=== PATIENT | female | born 1985 | race Two or more races ===

== ENCOUNTER 2023-06-08 21:45 | Outpatient (REF) | payer OTHER, SELFPAY ==
[2023-06-12 11:11] LABS: Age Gdln ACOG Testing Note (.); HPV Aptima Negative (Negative); IGP, Aptima HPV, rfx 16/18,45 Note (.)
== END 2023-06-08 21:46 | disposition home or self-care (01) ==
LOC: LAB 21:45
PROVIDERS: Visit Provider Obstetrics & Gynecology
DX: Z01.419 Encounter for gynecological examination (general) (routine) without abnormal findings (principal)
CPT/HCPCS: 87624; G0145

== ENCOUNTER 2024-06-14 19:50 | Outpatient (REF) | payer OTHER, SELFPAY ==
[2024-06-19 16:08] LABS: Age Gdln ACOG Testing Note (.); HPV Aptima Negative (Negative); IGP, Aptima HPV, rfx 16/18,45 Note (.)
== END 2024-06-14 19:51 | disposition home or self-care (01) ==
LOC: LAB 19:50
PROVIDERS: Visit Provider Obstetrics & Gynecology
DX: Z01.419 Encounter for gynecological examination (general) (routine) without abnormal findings (principal)
CPT/HCPCS: 88175

== ENCOUNTER 2025-01-31 16:39 | Outpatient (OUT) | payer OTHER, SELFPAY ==
--- OUTSIDE RECORDS SUMMARY | 2024-11-27 15:23 | XMS_ITS ---
Author Name Auto Generated Organization [facility] Care Team Providers Care Director Enterprise Systems Name Role Phone BESSIE LARSEN Attending Unavailable [place] CHAMBERS Attending Unavailable SU, MIHIR Kruse Attending Unavailabl e SU, MIHIR Kruse Attending Unavailabl e SU, MIHIR Kruse Attending Unavailabl e PROBLEMS No Problem Records Found PROCEDURES No Procedure Records Found RESULTS FAMILY MEDICINE OFFICE/CLINI C NOTE Observed: 06/15/2024 1:49 PM Status: F Source: [facility] Family Medicine Office/Clini c Note HPI Staff Thai is a 39 year old female presenting with Establish Care: History: Any previous diagnosis: no History of seeing any specialist: no When was your last doctors visit: awhile ago she can't remember Last provider: Khushbu Any recent labs:PAP completed yesterday with Dr. Larsen Acute: Current issues/complaints: weight loss History of Present Illness 38 year old patient presents today to establish care with this provider and to discuss her weight. She reports she has gained 30 pounds since March 2024. She states she has not changed her eating habits but she did stop going to the gym around that time. Review of Systems PHQ Score Initial Depression Screen Score: 0 SCORE Constitutional: no fever, no chills, no sweats, no weakness Skin: no Jaundice, no rash, no lesions, nopetechiae ENMT: no ear pain, no sore throat, no congestion, no hoarseness Respiratory: no shortness of breath, no cough, no orthopnea, no wheezing Cardiovascular: no chest pain, no palpitations, no edema Gastrointestinal: no nausea, no vomiting, no diarrhea, no GI bleeding Genitourinary: no dysuria, no hematuria, no discharge, no pain Musculoskeletal: no back pain, no trauma Neurologic: no headache, no dizziness, no numbness, no weakness Psychiatric: no sleeping problems, no irritability, no mood swings/depression. Heme/Lymph: no bleeding tendency, no bruising tendency, no petechiae, no swollen nodes Allergy/Immunologic: no seasonal allergies, no food allergies, no recurrent infections, no impaired immunity Additional ROS info: Except as noted in the above Review of Systems and in the History of Present Illness all other systems have been reviewed and are negative or noncontributory. Physical Exam Vitals & Measurements T: 36.4 ???C(Oral) HR: 76(Peripheral) RR: 18 BP: 124/82 SpO2: 99% HT: 64 in HT: 161.4 cm WT: 90.8 kg WT: 200.179 lb BMI: 34.86 General: alert, no acute distress Skin: warm, dry Head: no trauma, normocephalic Neck: Trachea midline, no adenopathy, no tenderness Eye: normal conjunctiva, sclera clear ENMT: TM's clear, oral mucosa moist, no pharyngeal erythema or exudate Cardiovascular: regular rate and rhythm, normal peripheral perfusion Respiratory: Lungs CTA, respirations non labored Chest wall: no deformity. Gastrointestinal: soft, non distended, no tenderness, no guarding. Back: No tenderness, Normal ROM, Normal alignment. Extremities: no deformity, no trauma Neurological: oriented x 4, LOC appropriate for age, CN II-XII intact, motor strength equal & normal bilaterally, sensation equal & normal bilaterally, speech normal Psychiatric: cooperative, affect appropriate for age, normal judgement, normal psychiatric thoughts. Assessment/Plan 1. Weight gain (R63.5: Abnormal weight gain) Patient reports 30 pound weight gain since March 2024 Encouraged to keep a food diary and exercise log an to bring to her next appointment Encouraged portion control f/u in 4 weeks Ordered: Comprehensive Metabolic Panel Lipid Panel Thyroid Stimulating Hormone 2. Encounter to establish care with new provider (Z76.89: Persons encountering health services in other specified circumstances) Ordered: Comprehensive Metabolic Panel Lipid Panel Thyroid Stimulating Hormone 3. Non-smoker (Z78.9: Other specified health status) Encouragd to continue as a non-smoker 4. BMI 34.0-34.9,adult (Z68.34: Body mass index [BMI] 34.0-34.9, adult) The standard range for ages 18 and older is >=18.5 and < 25 kg/m2. Your BMI today was above this range, this falls in the overweight to obese category and there are medical benefits to weight loss. We can offer counselling, referral, and/or medical support in addressing this problem. Your BMI and weight management will be followed at subsequent visits. 5. Exogenous obesity (E66.09: Other obesity due to excess calories) An explanation and discussion of advanced care planning for of end of life completed. Discussion included: assisting patient to designate a person to make decisions for the patient if the patient is unable to speak, types of medical care preferred and desired comfort level that is preferred. Verbal and written instructions were given to patient today. Handouts included the Patient plans to discuss with. Patient was offered assistance in completing documents. Upon completion of the document the patient will Follow-up With When Contact Information CLARISA BLUE CNP, FAM Within [address] [place] [id number] [employer] (1) Additional Instructions: Weight issues Patient Education BMI for Adults Problem List/Past Medical History Ongoing No qualifying data Historical No qualifying data Medications Mirena spironolactone, 1 tab(s), Oral, Daily tretinoin Top 0.1% Crm, 1 drop(s), Topical, Daily Allergies No active allergies Social History Alcohol Current. Beer, Wine, Liquor. 1-2 times per month., 06/15/2024 Substance Abuse Never., 06/15/2024 Tobacco Never (less than 100 in lifetime) Tobacco Use:., 06/15/2024 Result Comment: Electronical ly Signed By: CLARISA BLUE CNP\.br\Date and Time Signed: 06/15/24 13:50 EST PATIENT EDUCATION Observed: 06/15/2024 1:41 PM Status: F Source: [facility] Patient Education Nutrition BMI for Adults Body mass index (BMI) is a number found using a person's weight and height. BMI can help tell how much of a person's weight is made up of fat. BMI does not measure body fat directly. It is used instead of tests that directly measure body fat, which can be difficult and expensive. What are BMI measurements used for? BMI is useful to: ??? Find out if your weight puts you at higher risk for medical problems. ??? Help recommend changes, such as in diet and exercise. This can help you reach a healthy weight. BMI screening can be done again to see if these changes are working. How is BMI calculated? Your height and weight are measured. The BMI is found from those numbers. This can be done with U.S. or metric measurements. Note that charts and online BMI calculators are available to help you find your BMI quickly and easily without doing these calculations. To calculate your BMI in U.S. measurements: 1. Measure your weight in pounds (lb). 2. Multiply the number of pounds by 703. ??? So, for an adult who weighs 150 lb, multiply that number by 703: 150 x 703, which equals 105,450. 3. Measure your height in inches. Then multiply that number by itself to get a measurement called inches squared. ??? So, for an adult who is 70 inches tall, the inches squared measurement is 70 inches x 70 inches, which equals 4,900 inches squared. 4. Divide the total from step 2 (number of lb x 703) by the total from step 3 (inches squared): 105,450 ? 4,900 = 21.5. This is your BMI. To calculate your BMI in metric measurements: 1. Measure your weight in kilograms (kg). ??? For this example, the weight is 70 kg. 2. Measure your height in meters (m). Then multiply that number by itself to get a measurement called meters squared. ??? So, for an adult who is 1.75 m tall, the meters squared measurement is 1.75 m x 1.75 m, which equals 3.1 meters squared. 3. Divide the number of kilograms (your weight) by the meters squared number. In this example: 70 ? 3.1 = 22.6. This is your BMI. What do the results mean? BMI charts are used to see if you are underweight, normal weight, overweight, or obese. The following guidelines will be used: ??? Underweight: BMI less than 18.5. ??? Normal weight: BMI between 18.5 and 24.9. ??? Overweight: BMI between 25 and 29.9. ??? Obese: BMI of 30 or above. BMI is a tool and cannot diagnose a condition. Talk with your health care provider about what your BMI means for you. Keep these notes in mind: ??? Weight includes fat and muscle. Someone with a muscular build, such as an athlete, may have a BMI that is higher than 24.9. In cases like these, BMI is not a correct measure of body fat. ??? If you have a BMI of 25 or higher, your provider may need to do more testing to find out if excess body fat is the cause. ??? BMI is measured the same way for males and females. Females usually have more body fat than males of the same height and weight. Where to find more information For more information about BMI, including tools to quickly find your BMI, go to: ??? Centers for Disease Control and Prevention: cdc.gov ??? [place] Heart Association: heart.org ??? National Heart, Lung, and Blood [place]: nhlbi.nih.gov This information is not intended to replace advice given to you by your health care provider. Make sure you discuss any questions you have with your health care provider. Document Revised: 01/07/2023 Document Reviewed: 12/31/2022 [employer] Patient Education ? 2023 [employer] ALLERGIES No Allergies Records Found ENCOUNTERS ADMIT/DISCHARGE ACCOUNT NUMBER ADMITTING ENCOUNTER CLASS LOCATION SOURCE 11/27/2024/ 5 [id number] Ambulatory Building:[facility] 07/06/2024/ 5 [id number] [facility] [place] 07/03/2024 [id number] Ambulatory [facility] [place] 06/15/2024/ 5 [id number] Ambulatory [facility] [facility] : CD:[id number] [facility] 06/14/2024 [id number] Ambulatory [facility] [place] 06/14/2024/02/12 [id number] Ambulatory Building:[facility] EPIC PAYERS ENCOUNTER GUARANTOR PAYER SUBSCRIBER SOURCE 11/27/2024 THAIGuerrero PALAFOXSDOB: [address] [place], [place] [address]Mzc: (HP) Primary Insurance:[employer]EP olicy Number: [id number] Date:2023-09-14 THAI BLEWOOSDOB: [id number] [place] [address] [facility] 07/06/2024 THAI VIVIENNESDOB: Val BARCENAS DRTel: [id number]~~[phone] (HP) Primary Insurance:[employer] BenefitsPolicy Number: [id number] Date:[id number] [address]FV: [facility] THAI BLEWOOSDOB: Val BARCENAS DRTel: [id number]~~[phone] (HP) Primary Insurance:[employer] BenefitsPolicy Number: [id number] Date:[id number] [address]AS: [facility] 06/15/2024 THAI VIVIENNESDOB: Val BARCENAS DRTel: [id number]~~[phone] (HP) Primary Insurance:[employer] BenefitsPolicy Number: [id number] Date:[id number] [address]NF: [facility] 06/14/[facility]24 THAI BLEVINSDOB: [place], [place] [address]Fpj: (HP)THAI BLEVINSDOB: [place] [address]Jmm: () Primary Insurance:[facility] Number: [id number] Date:2023-09-14 THAI BLEVINSDOB: [id number] [place] [address] [facility] EPIC
--- OUTSIDE RECORDS SUMMARY | 2025-01-31 16:43 | XMS_ITS | Clinical Summary ---
Author Organization [facility] Healthcare Address [address] [place] [address] Care Team Providers Care Raise Miner Name Role Phone Esa Holland MD Primary Care Provider [phone] Jillian Tillman PRICE ECONOMIST Unavailable [phone] Allergies No known active allergies Medications Levonorgestrel (Mirena, 52 MG,) 20 MCG/DAY intrauterine device 52 mg by Intrauterine route if needed (every 5 years) Active spironolactone (Aldactone) 100 MG tabletIndication s:Acne vulgaris Take 1 tablet (100 mg) by mouth Daily Take 1 tablet po daily 90 tablet 3 4 Active tretinoin (Retin-A) 0.1 % creamIndications :Acne vulgaris Apply to face, once daily at evening/night time. Wash off in AM. 90 day supply 135 g 3 4 Active Active Problems Problem Noted Date Diagnosed Date Class 1 obesity due to exces s calories without serious comorbidity in adult 11/27/2024 Assessment & Plan (11/27/2024 4:48 PM EDT): Discussed with patient their BMI (actual, verses recommended). We have also discussed lifestyle modifications: attempts to perform physical activity as chronic conditions allow, also to monitor dietary intake: increasing protein/fruits/veggies and lowering carb intake (unless contraindicated). Limit sodas, juices, and sugary drinks. Also discussed oral medications that can be utilized for weight loss, as well as surgical options for weight loss. Wellness examination 11/27/2024 Assessment & Plan (11/27/2024 4:49 PM EDT): Check labs Restart exercise 2-3 times week Fu to review labs Acanthosis nigricans 11/27/2024 Assessment & Plan (11/27/2024 4:49 PM EDT): Check insulin Weight gain, abnormal 11/27/2024 Assessment & Plan (11/27/2024 4:50 PM EDT): Check labs Consider adipex at fu appt 1600 calorie diet Encounters Date Type Department Care Team Description 11/27/2024 3:40 PM EDT Office Visit [facility] [address] [place] [address] Jillian Tillman NP Weight gain, abnormal (Primary Dx); Class 1 obesity due to excess calories without serious comorbidity in adult, unspecified BMI; Wellness examination; Acanthosis nigricans 11/27/2024 Bamboo flowsheet [facility] [address] [place] [address] Jillian Tillman NP from Last 3 Months Immunizations Immunization Administration Dates Next Due Influenza, seasonal, injectable 04/23/2006 Tdap 04/02/2011 Family History Medical History Relation Name Comments Diabetes Brother Diabetes Father Hypertension Father Diabetes Mother Hypotension Mother Lung cancer Paternal Grandmother Asthma Sister Relation Name Status Comments Brother Father Mother Paternal Grandmother Sister Social History Tobacco Use Types Packs/Day Years Used Date Smoking Tobacco: Never Smokeless Tobacco: Never Tobacco Cessation:Counseling Given: Not Answered Alcohol Use Standard Drinks/Week Comments Defer 0 (1 standard drink = 0.6 oz pur e alcohol) caffine: 1x weekly PHQ-2 Answer Date Recorded Patient Health Questionnaire-2 Score 0 11/27/2024 Comments Unknown Sex and Gender Information Value Date Recorded Sex Assigned at Female 12/22/2023 12:20 PM EDT Legal Sex Female 8:08 PM EDT Gender Identity Female 12/22/2023 12:20 PM EDT Sexual Orientation Not on file Last Filed Vital Signs Vital Sign Reading Time Taken Comments Blood Pressure 118/82 11/27/2024 3:45 PM EDT Pulse 108 11/27/2024 3:45 PM EDT Temperature 36.9 C (98.5 F) 11/27/2024 3:45 PM EDT Respiratory Rate 18 11/27/2024 3:45 PM EDT Oxygen Saturation 97% 11/27/2024 3:45 PM EDT Inhaled Oxygen Concentration - - Weight 99.6 kg (219 lb 9.6 oz) 11/27/2024 3:45 P M EDT Height 160 cm (5' 3 ) 11/27/2024 3:45 PM EDT Body Mass Index 38.9 11/27/2024 3:45 PM EDT Plan of Treatment Upcoming Encounters Date Type Department Care Team (Late st Contact Info) Description 06/27/2025 4:00 PM EST Office Visit [facility] [address] [place] [id number] Luca Larsen DO [address] [place] [address] Health Maintenance Due Date Last Done Comments Influenza Vaccine (#1) 2025 04/23/2006 Cervical Cancer Screening 06/14/2029 HPV/Cotest 06/14/2029 Pap Smear 06/14/2029 06/14/2024, 06/08/2023 Procedures Procedure Name Priority Date/Time Associated Diagnosis Comments PAP SMEAR Routine 06/14/2024 12:00 AM EST from Last 3 Months or Most Recently Relevant to Health Maintenance Results * Pap Smear (06/14/2024 12:00 AM EST) Swab Cervical swab / Unknown us Luca Larsen DO LAB CYTOLOGY ORDERABLES Final Re sult EXTERNAL LAB from Last 3 Months or Most Recently Relevant to Health Maintenance Insurance [employer] [place] [id number] Care Teams Raise Miner Relationship Specialty Start Date End Date Esa Holland MD PCP - General Family Medicine 11/27/24 Jillian Tillman NP Nurse Practitioner Family Medicine 11/27/24
--- OUTSIDE RECORDS SUMMARY | 2025-01-31 16:43 | XMS_ITS | Encounter Summary ---
Author Organization [facility] Address [address] [place] [address] Care Team Providers Care Accounting Bookkeeper Name Role Phone Esa Holland MD Primary Care Provider Jillian Tillman WEBSPHERE DEVELOPER Unavailable [phone] Encounter Details Date Type Department Care Team (Late st Contact Info) Description 06/08/2024 Orders Only [facility] [address] [place] [address] Rosemary Abrams LPN [address] [place] [address] Social History Tobacco Use Types Packs/Day Years Used Date Smoking Tobacco: Never Smokeless Tobacco: Never Alcohol Use Standard Drinks/Week Comments Defer 0 (1 standard drink = 0.6 oz pur e alcohol) Comments Unknown Sex and Gender Information Value Date Recorded Sex Assigned at Female 12/22/2023 12:20 PM EDT Legal Sex Female 8:08 PM EDT Gender Identity Female 12/22/2023 12:20 PM EDT Sexual Orientation Not on file documented as of this encounter Plan of Treatment Upcoming Encounters Date Type Department Care Team (Late st Contact Info) Description 06/27/2025 4:00 PM EST [facility] [place] [address] Luca Larsen DO [address] [place] [address] documented as of this encounter Procedures Procedure Name Priority Date/Time Associated Diagnosis Comments PAP SMEAR Routine 06/08/2023 12:00 AM EST documented in this encounter Results * Pap Smear (06/08/2023 12:00 AM EST) Swab Cervical swab / Unknown Chava Nurse [facility] Ob LAB CYTOLOGY ORDERABLES Final Result EXTERNAL LAB documented in this encounter Visit Diagnoses Not on filedocumented in this encounter Care Teams Accounting Bookkeeper Relationship Specialty Start Date End Date Esa Holland MD PCP - General Family Medicine 11/27/24 Jillian Tillman NP Nurse Practitioner Family Medicine 11/27/24 documented as of this encounter
--- OUTSIDE RECORDS SUMMARY | 2025-01-31 16:43 | XMS_ITS | Encounter Summary ---
Author Organization [facility] Address [address] [place] [address] Care Team Providers Care Anhydrous Ammonia Production Supervisor Name Role Phone Esa Holland MD Primary Care Provider [phone] Jillian Tillman TOGGLER Unavailable [phone] Encounter Details Date Type Department Care Team (Late st Contact Info) Description 06/29/2024 Orders Only [facility] [address] [facility] [address] [place] [phone] Gurpreet Eldridge, [place] [address] [place] [address] Social History Tobacco Use Types Packs/Day Years [...] Description 06/27/2025 4:00 PM EST Office Visit [facility] [address] [facility] [place] [phone] Luca Larsen DO [address] [place], [place] [id number] documented as of this encounter Procedures Procedure Name Priority Date/Time Associated Diagnosis Comments PAP SMEAR Routine 06/14/2024 12:00 AM EST documented in this encounter Results * Pap Smear (06/14/2024 12:00 AM EST) Swab Cervical swab / Unknown us Luca Chava DO LAB CYTOLOGY ORDERABLES Final Re sult EXTERNAL LAB documented in this encounter Visit Diagnoses Not on filedocumented in this encounter Care Teams Anhydrous Ammonia Production Supervisor Relationship Specialty Start Date End Date Esa Holland MD PCP - General Family Medicine 11/27/24 Jillian Tillman NP Nurse Practitioner Family Medicine 11/27/24 documented as of this encounter
[2025-01-31 17:08] LABS: Glucose Urine UA NEGATIVE (NEGATIVE)
[2025-01-31 17:16] LABS: Hematocrit 41.5 % (36.0-48.0); Hemoglobin 13.6 g/dL (12.0-16.0); Immature Granulocytes Abs Auto 0.04 10^3/uL (0.00-0.03); Immature Granulocytes Pct Auto 0.3 % (0.0-0.5); Lymphocytes Absolute Auto 2.5 10^3/uL (1.2-3.8); Mean Corpuscular HGB Conc 32.8 g/dL (29.9-35.2); Mean Corpuscular Hemoglobin 27.9 pg (26.7-34.0); Mean Corpuscular Volume 85.0 fL (81.0-99.0); Platelet Count 371 10^3/uL (150-450); Red Blood Count 4.88 10^6/uL (4.20-5.40); White Blood Count 13.5 10^3/uL (4.0-11.0)
[2025-01-31 17:47] LABS: Alanine Aminotransferase 35 U/L (14-59); Albumin Globulin Ratio 0.9; Albumin Level 4.0 g/dL (3.4-5.0); Alkaline Phosphatase 107 U/L (46-116); Anion Gap 12.2; Aspartate Amino Transferase 20 U/L (15-37); Blood Urea Nitrogen 14.0 mg/dL (7.0-18.0); Calcium 9.2 mg/dL (8.5-10.1); Carbon Dioxide 27.4 mmol/L (21.0-32.0); Chloride 103 mmol/L (98-107); Cholesterol 148 mg/dL (<=200); Estimated GFR (African America >60 (>=60 mL/min/1.73m^2); Estimated GFR (Non-African Ame >60 (>=60 mL/min/1.73m^2); Globulin 4.7 g/dL; Glucose 76 mg/dL (74-106); HDL Cholesterol 37 mg/dL (40-60); Potassium 3.6 mmol/L (3.5-5.1); Sodium 139 mmol/L (136-145); Thyroid Stimulating Hormone 3.861 uIU/mL (0.358-3.740); Total Protein 8.7 g/dL (6.4-8.2); Triglycerides 58 mg/dL (<=150); VLDL CHOLESTEROL 11.6 mg/dL
== END 2025-01-31 16:40 | disposition home or self-care (01) ==
PROVIDERS: PCP Nurse Practitioner; Visit Provider Nurse Practitioner
DX: Z00.00 Encounter for general adult medical examination without abnormal findings (principal); E66.811 Obesity, class 1; E66.09 Other obesity due to excess calories
CPT/HCPCS: 36415; 80053; 80061; 81003; 83036; 83525; 84443; 85025

== ENCOUNTER 2025-03-09 15:35 | Outpatient (OUT) | payer OTHER, SELFPAY ==
--- OUTSIDE RECORDS SUMMARY | 2025-03-09 15:39 | XMS_ITS | CCD ---
Author Organization [facility] Care Team Providers Care Patient Office Rep Name Role Phone DR BESSIE LARSEN Attending Unavailable CHAVA, DR LA Consulting Unavailable CHAVA, DR LA Admitting Unavailable SHAIKH NELSON Primary Care Unavailable ARLEEN, DR KEISHA Williamson Consulting Unavailable CHAVA, DR LA Attending Unavailable CHAVA, DR LA Consulting Unavailable CHAVA, DR LA Admitting Unavailable SHAIKH NELSON Primary Care Unavailable SHAIKH NELSON Admitting Unavailable SHAIKH NELSON Attending Unavailable SHAIKH NELSON Consulting Unavailable GRIFFIN NELSONIKH Primary Care Unavailable Shaikh Nelson MD Primary Care Provider BESSIE LARSEN Attending Unavailable LARA VALERIO Attending Unavailable LARA VALERIO Attending Unavailable Shaikh Nelson MD Primary Care Provider Unavailable Primary Care Provider UnavailMIHIR Vines Attending UnavailMIHIR Vines Attending UnavailMIHIR Vines Attending UnavailEsa Gillis MD Primary Care Provider Primo PALACIO Jillian Unavailable BESSIE LARSEN Attending Unavailable JILLIAN TILLMAN Attending Unavailable LARA VALERIO Attending Unavailable Medications Current Medications MedicationDrug Class(es)DatesSig (Normalized)Sig (Original)levonorgestrel 0.458244 mg/hr intrauterine system (15 sources)Progestin, Progestin-containing Intrauterine DeviceLevonorgestrel (Mirena, 52 MG,) 20 MCG/DAY intrauterine device 52 mg by Intrauterine route if needed (every 5 years) Active End: 10-07-0364Dqjkkdriivkjro (Mirena, 52 MG,) 20 MCG/DAY intrauterine device 11/27/2024 Discontinued (Therapy completed)spironolactone 100 mg oral tablet (9 sources)Aldosterone AntagonistStart: 11-16-2023 End: 32-65-9494vozl 1 tablet by mouth once daily, then take 1 tablet by mouth once dailyspironolactone (Aldactone) 100 MG tablet Indications: Acne vulgaris Take 1 tablet (100 mg) by mouthDaily Take 1 tablet po daily 90 tablet 3 01/20/2024 01/19/2025 Activetretinoin 1 mg/ml topical cream (11 sources)RetinoidStart: 11-17-2023 End: 65-07-4283idhvvnkaa (Retin-A) 0.1 % cream Indications: Acne vulgaris Apply to face, once daily at evening/night time. Wash off in AM. 90 day supply 135 g 3 01/20/2024 Active End: 90-00-5301pgvvjliqe (Altralin) 0.05 % gel 11/27/2024 Discontinued (Therapy completed) Completed/Discontinued Medications MedicationDrug Class(es)DatesSig (Normalized)Sig (Original)benzoyl peroxide 0.05 mg/mg topical gel (9 sources)Start: 11-16-2023 End: 35-59-8038nomcuqe peroxide 5 % gel Indications: Acne vulgaris Apply to face once a day, in the morning mixed with clindamycin. 90 day supply 180 g 3 01/20/2024 11/27/2024 Discontinued (Therapy completed)clindamycin 0.01 mg/mg topical gel (9 sources)Lincosamide AntibacterialStart: 11-16-2023 End: 63-44-6655irwlbelytqk (Clindagel) 1 % gel Indications: Acne vulgaris Apply thin layer to face, once daily in the morning mixed with BPO. 90 day supply 180 g 3 01/20/2024 11/27/2024 Discontinued (Therapy completed) Problems Active Problems Problem ClassificationProblemDateDocumented DateEpisodic/ChronicAbdominal pain (4 sources)Pelvic and perineal pain; Translations: [PELVIC AND PERINEAL PAIN] Onset: 85-99-0814RlgzhuxeKfpialoenimydr/social admission (1 source)Persons encountering health services in other specified circumstances; Translations: [PERS ENC HLTHSRVC OTH CIRCUMSTANCE]Onset: 81-22-2535Kcvvuypd Contraceptive and procreative management (1 source)Presence of (intrauterine) contraceptive device; Translations: [PRESENCE IU CONTRACEPT DEVICE]Onset: 14-49-2766NjelusdvXznilqsobqnjf and screening for infectious disease (1 source)Encounter for screening for human papillomavirus (HPV); Translations: [ENC SCREENING HUMAN PAPILLOMAVIRUS]Onset: 33-90-8222XnkxwvqoQgimj nutritional; endocrine; and metabolic disorders (5 sources)Obesity caused by energy imbalance; Translations: [Class 1 obesity due to excess calories without serious comorbidity in adult]Onset: 11-27-2024 78-40-8039QtixtcdVmyjg nutritional; endocrine; and metabolic disorders (4 sources)Abnormal weight gain; Translations: [Abnormal weight gain]Onset: [id number] screening for suspected conditions (not mental disorders or infectious disease) (9 sources)Encounter for screening for malignant neoplasm of cervix; Translations: [Encounter for screening for diabetes mellitus]Onset: 07-16-2021 EpisodicOther skin disorders (4 sources)Acanthosis nigricans; Translations: [Acanthosis nigricans]Onset: [id number] Past or Other Problems Problem ClassificationProblemDateDocumented DateEpisodic/ChronicOther skin disorders (1 source)Acne vulgaris; Translations: [Acne vulgaris]85-15-1366Ogdxjqrz Results Test NameValueInterpretationReference RangeFacilityIGP,APTIMA HPV,AGE GDLNon 46-85-4076JKE GDLN ACOG TESTINGNote.NOMS HealthcareComment on above:TESTS RESULT FLAG UNITS REF RANGE LAB Clinician Provided Cytology Information No. of containers..01 ThinPrep Vial Age Algo ACOG Ledy... 30-65 FLAG LEGEND: L-Low Normal,H-High Normal,LL-Alert Low,HH-Alert High <-Panic Low,>-Panic High,A-Abnormal,AA-Critical Abnormal Performed at: 01 =[address] [address] Patricia Moragn MD, HPV APTIMANegativeNegativeNOMS HealthcareComment on above:This nucleic acid amplification test detects fourteen high- risk HPV types (16,18,31,33,35,39,45,51,52,56,58,59,66,68) without differentiation. Performed at: =[address] [id number] [employer] Salesperson: Patricia Morgan MD, Phone: [phone] Performed at: [address] [id number] [employer] Salesperson: Patricia Morgan MD, Phone: [phone] IGP, APTIMA HPV, RFX 16/18,45Note.NOMS HealthcareComment on above:TESTS RESULT FLAG UNITS REF RANGE LAB DIAGNOSIS: 02 NEGATIVE FOR INTRAEPITHELIAL LESION OR MALIGNANCY. FUNGAL ORGANISMS MORPHOLOGICALLY CONSISTENT WITH AYAZ SPECIES ARE PRESENT. Specimen adequacy: 02 Satisfactory for evaluation. Endocervical and/or squamous metaplastic cells (endocervical component) are present. Performed by: 02 Caroline Archibald [employer] . 02 Note: Note 02 The Pap smear is a screening test designed to aid in the detection of premalignant and malignant conditions of the uterine cervix. It is not a diagnostic procedure and should not be used as the sole means of detecting cervical cancer. Both false-positive and false-negative reports do occur. Test Methodology: Note 02 This liquid based ThinPrep(R) pap test was screened with the use of an image guided system. HPV Genotype Reflex Note 02 Criteria not met, HPV Genotype not performed. FLAG LEGEND: L-Low Normal,H-High Normal,LL-Alert Low,HH-Alert High <-Panic Low,>-Panic High,A-Abnormal,AA-Critical Abnormal Performed at: 02 [address] [facility] [address] [address] Patricia Morgan MD, [facility] Medicine Office/Clinic Noteon 72-04-5487[place] Medicine Office/Clinic NoteH[facility]/Clinic Note HPI Staff Camacho is a 39 year old female presenting [...] no food allergies, no recurrent infections, no impairedimmunity Additional ROS info: Except as noted in [...] medical support in addressing this problem. Your BMIand weight management will be followed at subsequent [...] and desired comfort level that is preferred. Verbaland written instructions were given to patient today. Handouts included the Patient plans to discuss with. Patient was offered assistance in completing documents. Upon completion of the document the patient will Follow-up With When Contact Information CLARISA BLUE CNP, FAM Within [address] [place] [phone] Business (1) Additional Instructions: Weight issues Patient Education BMI for Adults Problem List/Past Medical History Ongoing No qualifying data Historical No qualifying data Medications Mirena spironolactone, 1 tab(s), Oral, Daily tretinoin Top 0.1% Crm, 1 drop(s), Topical, Daily Allergies No active allergies Social History Alcohol Current. Beer (more content not included)...[facility] Comment on above:Result Comment: Electronically Signed By: CLARISA BLUE CNP\anuj\Date and Time Signed: 06/15/24 13:50 ESTPAP ACOG PANEL 2: 30 to 65on 09-27-2021..Parkwood HospitalComment on above:Result Comment: Performed at: [facility] CENTERerformed By: #### [id number] #### [facility] [address] [place] [address] Dr. Cristobal PalmerAge Gdln ACOG Ukrjczs83-00JzhfqpMfzSumma Health Wadsworth - Rittman Medical CenterComment on above:Performed By: #### [id number] #### [facility] [address] [place] [address] Dr. Cristobal PalmerDIAGNOSIS:CommentUniversity Hospitals Ahuja Medical Center on above: Result Comment: NEGATIVE FOR INTRAEPITHELIAL LESION OR MALIGNANCY. Performed at: BAPerformed By: #### [id number] #### [facility] [address] [place] [address] Dr. Cristobal PalmerHPV AptimaNegativeNormalNegativeTwin City HospitalCombaraga county memorial hospital on above:Result Comment: This nucleic acid amplification test detects fourteen high-risk HPV types (16,18,31,33,35,39,45,51,52,56,58,59,66,68) without differentiation. Performed at: =GPerformed By: #### [id number] #### [facility] [address] [place] [address] Dr. Cristobal PalmerMethodology:CommentUniversity Hospitals Ahuja Medical Center on above: Result Comment: This liquid based ThinPrep(R) pap test was screened with the use of an image guided system. Performed at: WBPerformed By: #### [id number] #### [facility] [address] [place] [address] Dr. Cristobal PalmerNote:CommentUniversity Hospitals Ahuja Medical Center on above:Result Comment: The Pap smear is a screening test designed to aid in the detection of premalignant and malignant conditions of the uterine cervix. It is not a diagnostic procedure and should not be used as the sole means of detecting cervical cancer. Both false-positive and false-negative reports do occur. . Performed at: WBPerformed By: #### [id number] #### [facility] [address] [place] [address] Dr. Cristobal PalmerPerformed by:CommentUniversity Hospitals Ahuja Medical Center on above: Result Comment: Nate Waite, [employer] (ASCP) Performed at: BAPerformed By: #### [id number] #### [facility] [address] [address] [address] Cristobal Dotsonimesameer adequacy:CommentNoRiverside Methodist Hospital on above:Result Comment: Satisfactory for evaluation. Endocervical and/or squamous metaplastic cells (endocervical component) are present. Performed at: BAPerformed By: #### [id number] #### [facility] [address] [address] [address] Cristobal PalmerUS PELVIS AND TRANSVAGon 64-63-3297GX PELVIS AND TRANSVAG EXAMINATION: US PELVIS AND TRANSVAG HISTORY: Pelvic and perineal pain ; IUD insertion 3 weeks ago COMPARISON: No relevant comparison available. TECHNIQUE: Transabdominal and transvaginal sonographic examination. FINDINGS: UTERUS: Normal size and appearance. Small amount of fluid within cervical canal. Uterus size: 6.8 x 3.3 x 4.6 cm ENDOMETRIUM: IUD within endometrial cavity appearing in good position. Normal homogeneous appearance of endometrium. Endometrial thickness: 4 mm RIGHT OVARY: Normal size and appearance. Duplex Doppler demonstrates normal waveform and flow; resistive index 0.7. Ovary size: 2.6 x 1.5 x 2.6 cm LEFT OVARY: Normal size and appearance. Duplex Doppler demonstrates normal waveform and flow; resistive index 0.6. Ovary size: 2.5 x 1.9 x 2.5 cm CUL-DE-SAC: Unremarkable. No significant free fluid. BLADDER: Unremarkable. OTHER: None. IMPRESSION: 1. IUD appears appropriately positioned within endometrial cavity. No suspicious findings. Electronically authenticated by: KEISHA BACON Date: 2021-09-25 16:16NormSalem City HospitalHIV 1 AND 2 WITH REFLEXon 94-80-8030YBN Screen 4th Generation wRfxNon-ReactiveNormalNon ReactiveThe [facility] CenterComment on above:Result Comment: HIV Negative HIV-1/HIV-2 antibodies and HIV-1 p24 antigen were NOT detected. There is no laboratory evidence of HIV infection.Performed By: #### [id number] #### [facility] [address] [address] [address] Cristobal PalmerC AUTO DIFFon 91-95-5995HOEJ #0.0 103/ulNormal0.0-0.1The [facility] CenterComment on above:Performed By: #### CBC #### [facility] [address] [place] [address] Dr. Cristobal PalmerBasophils/100 WBC (Bld)0.4 %Normal0.2-2.0[facility] Comment on above:Performed By: #### CBC #### [facility] [address] [place] [address] Dr. Cristobal Kuhn #0.2 103/ulNormal0.0-0.7The [facility] CenterComment on above: Performed By: #### CBC #### [facility] [address] [place] [address] Dr. Cristobal Maloneosinophils/100 WBC (Bld)2.2 %Normal0.9-7.0[facility] Comment on above:Performed By: #### CBC #### [facility] [address] [place] [address] Dr. Cristobal Malonerythrocyte distribution width (RBC) [Ratio]13.5 %Gqjpqc34.0-15.0 Twin City HospitalComment on above:Performed By: #### CBC #### [facility] [address] [place] [address] Dr. Cristobal PalmerHematocrit (Bld) [Volume fraction]38.3 %Hafxfb32.0-48.0The [facility] CenterComment on above:Performed By: #### CBC #### [facility] [address] [place] [address] Dr. Cristobal PalmerHemoglobin (Bld) [Mass/Vol]12.2 g/kIRkwfxh54.0-16.0The [facility] CenterComment on above:Performed By: #### CBC #### [facility] [address] [place] [address] Dr. Cristobal Washington #0.06 10e3/ulCritically high0.00-0.03[facility] Comment on above:Performed By: #### CBC #### [facility] [address] [address] [address] Cristobal Washington %0.6 %Critically high0.0-0.5The [facility] CenterComment on above:Performed By: #### CBC #### [facility] [address] [place] [address] Dr. Cristobal Morrison #2.1 103/ulNormal1.2-3.8The [facility] CenterComment on above:Performed By: #### CBC #### [facility] [address] [place] [address] Dr. Cristobal Mendenhallhocytes/100 WBC (Bld)19.6 %Critically low20.5-60.0The [facility] CenterCombaraga county memorial hospital on above:Performed By: #### CBC #### [facility] [address] [place] [address] Dr. Cristobal RendonUAL DIFF REQNONormalThe [facility] CenterComment on above: Performed By: #### CBC #### [facility] [address] [place] [address] Dr. Cristobal Ortiz (RBC) [Entitic mass]27.1 xlOgzszw05.7-34.0The [facility] CenterComment on above:Performed By: #### CBC #### [facility] [address] [place] [address] Dr. Cristobal Ortiz (RBC) [Mass/Vol]31.9 g/jPJaslgv71.9-35.2The [facility] CenterCombaraga county memorial hospital on above:Performed By: #### CBC #### [facility] [address] [place] [address] Dr. Cristobal Ortiz (RBC) [Entitic vol]85.1 vFVhvbwa92.0-99.0The [facility] CenterCombaraga county memorial hospital on above:Performed By: #### CBC #### [facility] [address] [place] [address] Dr. Cristobal Rivas #0.5 103/ulNormal0.3-0.8The [facility] CenterComment on above:Performed By: #### CBC #### [facility] [address] [address] [address] Cristobal Gardunoocytes/100 WBC (Bld)4.4 %Normal1.7-12.0The [facility] Comment on above:Performed By: #### CBC #### [facility] [address] [address] [address] Cristobal ButterfieldUT #7.6 103/ulCritically high1.4-6.5The [facility] Comment on above:Performed By: #### CBC #### [facility] [address] [place] [address] Dr. Cristobal Butterfieldutrophils/100 WBC (Bld)72.8 %Jisivt43.0-75.0The [facility] CenterComment on above:Performed By: #### CBC #### [facility] [address] [place] [address] Dr. Cristobal PalmerPlatelet mean volume (Bld) [Entitic vol]9.8 fLNormal9.5-13.5The [facility] CenterComment on above:Performed By: #### CBC #### [facility] [address] [place] [address] Dr. Cristobal PalmerPLT287 103/agCnftze253-442Bps [facility] CenterComment on above: Performed By: #### CBC #### [facility] [address] [place] [address] Dr. Cristobal PalmerRBC4.50 106/ulNormal4.20-5.40The [facility] CenterComment on above:Performed By: #### CBC #### [facility] [address] [place] [address] Dr. Cristobal PalmerWBC10.5 103/ulNormal4.0-11.0The [facility] CenterComment on above:Performed By: #### CBC #### [facility] [address] [place] [address] Dr. Cristobal PalmerGLYCOHEMOGLOBIN A1Con 53-17-6038PBB RECOMMENDATIONADA THERAPEUTIC TARGET 6.0 - 7.0 ACTION SUGGESTED > 7.0NormalThOhioHealth Dublin Methodist HospitalComment on above:Performed By: #### A1C #### [facility] [address] [address] [address] Cristobal PalmerGlucose [Mass/Vol]134 mg/dLParkwood HospitalComment on above:Performed By: #### A1C #### [facility] [address] [address] [address] Cristobal PalmerHbA1c (Bld) [Mass fraction]6.3 %Critically high<=6.0The [facility] CenterComment on above:Performed By: #### A1C #### [facility] [address] [address] [address] Cristobal HoytID PROFILEon 89-76-7756AWWG-HDL RATIO NORMSRegency Hospital Cleveland WestComment on above:Result Comment: 3.3 - 4.4 LOW RISK 4.4 - 7.1 AVERAGE RISK 7.1 - 11.0 MODERATE RISK >11.0 HIGH RISKPerformed By: #### CMP, LIPID #### [facility] [address] [place] [address] Dr. Cristobal Betancourtesterol [Mass/Vol]159 mg/dLNormal<=200[facility] Comment on above:Performed By: #### CMP, LIPID #### [facility] [address] [place] [address] Dr. Cristobal Betancourtesterol in HDL [Mass/Vol]41 mg/dLParkwood Hospital Comment on above:Performed By: #### CMP, LIPID #### [facility] [address] [address] [address] Cristobal PalmerCholesterol in LDL [Mass/Vol]80.2 mg/dLParkwood HospitalComment on above:Performed By: #### CMP, LIPID #### [facility] [address] [place] [address] Dr. Cristobal Betancourtestermiriam.total/Cholesterol in HDL [Mass ratio]3.9 {ratio} NormalThe [facility] CenterComment on above:Performed By: #### CMP, LIPID #### [facility] [address] [address] [address] Cristobal Lee NORMAL> or = 60 mg/dl - LOW CARDIOVASCULAR RISK <40 mg/dl - HIGH CARDIOVASCULAR RISKParkwood HospitalComment on above:Performed By: #### CMP, LIPID #### [facility] [address] [address] [address] Cristobal Silveira CALC NORMALSEE BELOWParkwood HospitalComment on above:Result Comment: <100 mg/dl OPTIMAL 100 - 129 mg/dl NEAR OR ABOVE OPTIMAL 130 - 159 mg/dl BORDERLINE HIGH 160 - 189 mg/dl HIGH >190 mg/dl VERY HIGH Performed By: #### CMP, LIPID #### [facility] [address] [address] [address] Cristobal PalmerTriglyceride [Mass/Vol]189 mg/dLCritically high<=150The [facility] on above:Performed By: #### CMP, LIPID #### [facility] [address] [place] [address] Dr. Cristobal ColbyLDL CALC37.8 mg/dLNoRiverside Methodist Hospital on above: Performed By: #### CMP, LIPID #### [facility] [address] [place] [address] Dr. Cristobal PalmerPROJuan J 14(COMP METB)on 16-93-3527Qzvthfp [Mass/Vol]3.0 g/dL Critically low3.5-5.0[facility] on above:Performed By: #### CMP, LIPID #### [facility] [address] [place] [address] Dr. Cristobal PalmerAlbumin/Globulin [Mass ratio]0.7 {ratio}NormalThe [facility] CenterCombaraga county memorial hospital on above:Performed By: #### CMP, LIPID #### [facility] [address] [place] [address] Dr. Cristobal Bray [Catalytic activity/Vol]107 U/DVehqrf80-377Myu [facility] on above:Performed By: #### CMP, LIPID #### [facility] [address] [place] [address] Dr. Yilan ChangALT [Catalytic activity/Vol]19 U/LNormal9-52The [facility] Comment on above:Performed By: #### CMP, LIPID #### [facility] [address] [place] [address] Dr. Cristobal Morenoon gap [Moles/Vol]9.7 mmol/LNormalThe [facility] CenterComment on above:Performed By: #### CMP, LIPID #### [facility] [address] [place] [address] Dr. Cristobal PalmerAST [Catalytic activity/Vol]10 U/LCritically qzh82-03Kvh [facility] CenterComment on above:Performed By: #### CMP, LIPID #### [facility] [address] [place] [address] Dr. Cristobal PalmerBilirubin [Mass/Vol]0.1 mg/dLCritically low0.2-1.3The [facility] CenterComment on above:Performed By: #### CMP, LIPID #### [facility] [address] [place] [address] Dr. Cristobal PalmerCalcium [Mass/Vol]8.5 mg/dLNormal8.4-10.2[facility] Comment on above:Performed By: #### CMP, LIPID #### [facility] [address] [place] [address] Dr. Cristobal PlamerChloride [Moles/Vol]103 mmol/QXzkujo15-898Amw [facility] Comment on above:Performed By: #### CMP, LIPID #### [facility] [address] [place] [address] Dr. Cristobal PalmerCO2 [Moles/Vol]28.5 mmol/ODquqhh53.0-30.0The [facility] Comment on above:Performed By: #### CMP, LIPID #### [facility] [address] [place] [address] Dr. Cristobal PalmerCreatinine [Mass/Vol]0.84 mg/dLNormal0.52-1.04The [facility] CenterComment on above:Performed By: #### CMP, LIPID #### [facility] [address] [place] [address] Dr. Cristobal MaloneGFR-AF ETHIOPIAN>60Normal>=60The [facility] CenterComment on above:Performed By: #### CMP, LIPID #### [facility] [address] [address] [address] Cristobal MaloneGFR-NON AF ETHIOPIAN>60Normal>=60The [facility] CenterComment on above:Performed By: #### CMP, LIPID #### [facility] [address] [address] [address] Cristobal PalmerGlobulin (S) [Mass/Vol]4.6 g/dLNormalThe [facility] CenterComment on above:Performed By: #### CMP, LIPID #### [facility] [address] [place] [address] Dr. Cristobal PalmerGlucose [Mass/Vol]185 mg/dLCritically wnnl56-165Mmd [facility] CenterComment on above:Performed By: #### CMP, LIPID #### [facility] [address] [place] [address] Dr. Cristobal PalmerPotassium [Moles/Vol]4.2 mmol/LNormal3.4-5.0[facility] Comment on above:Performed By: #### CMP, LIPID #### [facility] [address] [place] [address] Dr. Cristobal PalmerProtein [Mass/Vol]7.6 g/dLNormal6.1-8.2[facility] Comment on above:Performed By: #### CMP, LIPID #### [facility] [address] [place] [address] Dr. Cristobal PalmerSodium [Moles/Vol]137 mmol/VQkpbsu489-044FjlTwin City Hospital Comment on above:Performed By: #### CMP, LIPID #### [facility] [address] [place] [address] Dr. Cristobal PalmerUrea nitrogen [Mass/Vol]14.0 mg/dLNormal7.0-17.0The [facility] CenterComment on above:Performed By: #### CMP, LIPID #### [facility] [address] [place] [address] Dr. Cristobal PalmerUrea nitrogen/Creatinine [Mass ratio]16.7 mg/mgParkwood HospitalComment on above:Performed By: #### CMP, LIPID #### [facility] [address] [address] [address] Cristobal Palmer Vital Signs Date TimeVital SignValuePerforming NoxlvovrxNulsweyc24-98-8287 15:45-0400Body twhecd098 cmLisa Primo BAND SAWING MACHINE OPERATOR Work Phone: [facility] CenterXmrwsviifw54-32-4902 15:45-0400Body mass index (BMI) [Ratio]38.9 kg/m2Lisa Jonihroxanna BAND SAWING MACHINE OPERATOR Work Phone: [facility] CenterVqtghtnglf36-65-8093 15:45-0400Body temperature 98.49 [degF]Jillian Primo BAND SAWING MACHINE OPERATOR Work Phone: [facility] CenterEktifqtgnp57-62-6313 15:45-0400Body txhort33.61 kgLisa Treeroxanna BAND SAWING MACHINE OPERATOR Work Phone: [facility] CenterGhydonqkif74-85-4461 15:45-0400Diastolic blood evxzaaay19 mm[Hg]Jillian Treeroxanna BAND SAWING MACHINE OPERATOR Work Phone: [facility] CenterDilqcwvgjh77-08-8063 15:45-0400Heart coky345 /min Jillian Treeroxanna BAND SAWING MACHINE OPERATOR Work Phone: [facility] CenterZexqahbrss82-35-8426 15:45-0400Respiratory rate18 /minLisa Leavittroxanna BAND SAWING MACHINE OPERATOR Work Phone: [facility] CenterHbxeqgljjd88-09-7064 15:45-4238JdW8% (BldA) [Mass fraction]97 %Jillian Treeroxanna BAND SAWING MACHINE OPERATOR Work Phone: [facility] CenterMqqpfgjvtw57-75-8738 15:45-0400Systolic blood mm[Hg]Jillian Jonidarrinroxanna BAND SAWING MACHINE OPERATOR Work Phone: [facility] CenterXmrmfcoffg11-02-6835 15:37-0500Body mass index (BMI) [Ratio]35.78 kg/m3Fpbei Chava DO Work Phone: [facility] CenterKhkdbaltob81-37-8889 15:37-0500Body .63 kgCorey Chava DO Work Phone: [facility] CenterYgcevuryvf12-41-9125 15:37-0500Diastolic blood wjqauqjd80 mm[Hg]Bessie Chava DO Work Phone: [facility] CenterXiiuieuggl53-06-9539 15:37-0500Systolic blood lmverypf303 mm[Hg]Bessie Chava DO Work Phone: [facility] CenterEudtapqwpy51-37-6078 15:19-0500Body qtzzjy598 cm Bessie Chava DO Work Phone: [facility] CenterDwxhnoropo00-74-3208 15:19-0500Body mass index (BMI) [Ratio]31.32 kg/t7Clkgg Chava DO Work Phone: [facility] CenterCkrbwpapeh85-81-8388 15:19-0500Body .2 kg Bessieharvinder Saraho DO Work Phone: [facility] CenterVlnlhdgyna83-31-8533 15:19-0500Diastolic blood mm[Hg]Bessie Chava DO Work Phone: [facility] CenterJnnvqlbgks39-56-6379 15:19-0500Systolic blood mm[Hg]Bessieharvinder Saraho DO Work Phone: [facility] Encounters Encounter DateEncounter TypeCare ProviderFacilityStart: 11-27-2024 End: 64-92-1757Fzwmza outpatient visit 25 minutesLisa Tillman BAND SAWING MACHINE OPERATOR Work Phone: [facility] CWM FMComment on above:Weight gain, abnormal (Primary Dx); Class 1 obesity due to excess calories without serious comorbidity in adult, unspecified BMI; Wellness examination; Acanthosis nigricansStart: 11-27-2024 End: 28-28-2538mvyblhtblnEMRV EULOGIOot AvailableStart: 11-27-2024 End: 74-88-7861Fsskap flowsheetLisa Primo BAND SAWING MACHINE OPERATOR Work Phone: [facility] CWM FMStart: 11-27-2024 End: 12-61-3629Gvyzcy flowsheetJillian Tillman BAND SAWING MACHINE OPERATOR Work Phone: [facility] CWM FMStart: 11-27-2024 End: 08-35-5941Gdnqxpb encounter statusJillian Tillman BAND SAWING MACHINE OPERATOR Work Phone: [facility] HealthcareStart: 07-06-2024 End: 22-45-3342doyujftytqHRM CLARISA A LEHMANNFacility:FT FM BellevueStart: 50-47-8696lmepdtpxlyUJE CLARISA A LEHMANNFacility:FT FM BellevueStart: 06-15-2024 End: 61-01-3087vwqhkxelawCPK CLARISA A LEHMANNFacility:FT FM BellevueStart: 06-14-2024 End: 63-17-0584rxfhgjkrabRVASU FAZIOFacility:FT FM BellevueStart: 06-14-2024 End: 26-57-2109Tnediqm encounter procedureCorey Chava DO Work Phone: [facility] HealthcareStart: 06-14-2024 End: 92-18-1837Xvuxewhh preventive med est patient 18-39 yrsCorey Chava DO Work Phone: [facility] BCP OBComment on above:Well woman exam with routine gynecological examStart: 06-14-2024 End: 92-56-4979Zixsls flowsheetCorey Chava DO Work Phone: [facility] BCP OBStart: 06-14-2024 End: 16-33-0834Pmcgpq flowsheetCorey Chava DO Work Phone: [facility] BCP OBStart: 06-14-2024 End: 10-12-9963Edslllfot Result EncounterCorey Chava DO Work Phone: [facility] External Department UnsolicitedStart: 01-20-2024 End: 31-90-5908eiqqkoboqyLQJIE A PETITTINot AvailableStart: 01-20-2024 End: 32-80-6102Xccunr outpatient visit 15 minutesEmily Aixa Valerio MD Work Phone: [facility] SWS DERMComment on above:Acne vulgaris (Primary Dx)Start: 11-16-2023 End: 94-47-4770stcvrkbnlbCLAIF A PETITTINot AvailableStart: 09-16-2023 End: 37-79-8693iszbqvcnstSXZZY A PETITTINot AvailableStart: 06-08-2023 End: 92-72-3394fvcvfimdkkQWMUM FAZIONot AvailableStart: 06-08-2023 End: 11-04-8715Yhrwpaw encounter procedureCorey Chaav DO Work Phone: [facility] Work Phone: Start: 06-08-2023 End: 03-54-9615Gwyvyieo preventive med est patient 18-39 yrsCorey Chava DO Work Phone: [facility] BCP OBComment on above:Well woman exam with routine gynecological examStart: 09-25-2021 End: 96-31-0704ynquiluvjiBY BESSIE FAZIOFacility:M4Lfane: 09-22-2021 End: 76-16-8240qmrlpecoucAP BESSIE FAZIOFacility:J7Jcfxr: 07-16-2021 End: 35-03-4417pbumhjufozNVFJYN FAWWADFacility:H1 Procedures DateProcedureProcedure DetailPerforming ClinicianStart: 72-70-0225ZZQ,APTIMA HPV,AGE GDLNCorey Chava DO Work Phone: Start: 99-15-5412Qfvynghvrxl observation [Identifier] in Cervix by Cyto stainLisa Primo BAND SAWING MACHINE OPERATOR Work Phone: Start: 21-09-1162Oudvqsqgmxf observation [Identifier] in Cervix by Cyto stainCorey Hcava DO Work Phone: Plan of Treatment DateCare ActivityDetailAuthorStart: 17-33-5247Ombzgdpvs for malignant neoplasm of cervixNOMS HealthcareStart: 37-05-5331Vawwqradq for malignant neoplasm of cervixNOMS HealthcareStart: 06-27-2025 End: 31-19-3053Innbrsm encounter procedureNOMS BCP OBStart: 01-23-2025 End: 44-87-4482Eiajtnj encounter procedureNOMS SWS DERMStart: 01-03-2025 End: 62-07-4112Rqtnljk encounter vgpsnwakp55/03/2025 4:30 PM EDT Office Visit [facility] [address] [place] [address] Jillian Tillman, BAND SAWING MACHINE OPERATOR [address] [place] [address] [facility] FMStart: 39-23-0361Tzsbqfwlh vaccinationInfluenza Vaccine (#1)NOM HealthcareStart: 11-27-2024 End: 19-95-1072Ozvtdza encounter whibtnsmq62/28/2025 3:40 PM EDT Office Visit [facility] [address] [place] [address] Jillian Tillman, BAND SAWING MACHINE OPERATOR [address] [place] [address] Class 1 obesity due to excess calories without serious comorbidity in adult, unspecified BMI (Primary Dx); Wellness examinationNOINSPIRE SPECIALTY [facility]ITAL [facility] FMComment on above:Class 1 obesity due to excess calories without serious comorbidity in adult, unspecified BMI (Primary Dx); Wellness examinationStart: 11-27-2024 End: 69-45-6464YAC W Auto Differential panel - BloodCBC and differential Lab Routine Wellness examination Expected: 11/27/2024 (Approximate), Expires: 0 11/27/2025[facility] Work Phone: Comment on above:Expected: 11/27/2024 (Approximate), Expires: 11/27/2025Start: 11-27-2024 End: 47-41-1382Hgerjpjfljyeh metabolic 2000 panel - Serum or PlasmaComprehensive metabolic panel Lab Routine Wellness examination Expected: 11/27/2024 (Approximate), Expires: 11/27/2025[facility] HealthcareComment on above:Expected: 11/27/2024 (Approximate), Expires: 11/27/2025Start: 11-27-2024 End: 14-79-3008Lmfgyjaaay A1c/Hemoglobin.total in BloodHemoglobin A1c Lab Routine Class 1 obesity due to excess calories without serious comorbidity in adult, unspecified BMI Expected: 11/27/2024 (Approximate), Expires: 11/27/2025 [facility] HealthcareComment on above:Expected: 11/27/2024 (Approximate), Expires: 11/27/2025Start: 11-27-2024 End: 93-75-0019Isfzskc, randomInsulin, random Lab Routine Class 1 obesity due to excess calories without serious comorbidity in adult, unspecified BMI Expected: 11/27/2024 (Approximate), Expires: 11/27/2025[facility] HealthcareComment on above: Expected: 11/27/2024 (Approximate), Expires: 11/27/2025Start: 11-27-2024 End: 93-31-5428Llwmv 1996 panel - Serum or PlasmaLipid panel Lab Routine Wellness examination Expected: 11/27/2024 (Approximate), Expires: 11/27/2025[facility] HealthcareComment on above:Expected: 11/27/2024 (Approximate), Expires: 11/27/2025Start: 11-27-2024 End: 27-57-6483Lzxvwehtrah [Units/volume] in Serum or PlasmaTSH Lab Routine Wellness examination Expected: 11/27/2024 (Approximate), Expires: 11/27/2025[facility] HealthcareComment on above:Expected: 11/27/2024 (Approximate), Expires: 11/27/2025Start: 11-27-2024 End: 34-16-5223Yjeempabsl complete panel - UrineUrinalysis with reflex microscopic (clean catch) Lab Routine Wellness examination Expected: 11/27/2024 (Approximate), Expires: 11/27/2025NO[facility] HealthcareComment on above:Expected: 11/27/2024 (Approximate), Expires: 11/27/2025Start: 06-14-2024 End: 07-89-1925Ykvvvmz encounter azwkivsjb18/12/2025 3:00 PM EST Office Visit [facility] OB [address] [place] [address] Bessie Larsen DO [address] [place] [address] [facility] OBStart: 19-54-1624Yulceqvjt vaccination Influenza Vaccine (#1)[facility] HealthcareStart: 39-29-4385Nnulkcrgi vaccination Influenza Vaccine (#1)[facility] HealthcareStart: 18-32-9622Nrcycjbgy for malignant neoplasm of cervixNOMS HealthcareStart: 14-06-6648Bysrzgnxp for malignant neoplasm of cervixPap SmearNOAL HealthcareCytology Cervical or vaginal smear or scraping studyPap Smear Pathology and Cytology Routine Well woman exam with routine gynecological exam Ordered: 06/08/2023[facility] Work Phone: comment on above:Ordered: ytology Cervical or vaginal smear or scraping studyPap Smear Pathology and Cytology Routine Well woman exam with routine gynecological exam Ordered: 06/14/2024[facility] Work Phone: comment on above:Ordered: 06/14/2024Human papilloma virus DNA [Presence] in Unspecified specimen by Probe with amplificationHPV DNA probe, amplified Microbiology Routine Well woman exam with routine gynecological exam Ordered: 06/08/2023[facility] HealthcareComment on above:Ordered: 06/08/2023 Human papilloma virus DNA [Presence] in Unspecified specimen by Probe with amplificationHPV DNA probe, amplified Microbiology Routine Well woman exam with routine gynecological exam Ordered: 06/14/2024[facility] HealthcareComment on above: Ordered: 06/14/2024 Immunizations Immunization DateImmunizationNotesCare IjqdggxeQecrfthi32-43-1451mpgball toxoid, reduced diphtheria toxoid, and acellular pertussis vaccine, adsorbedLisa Aichholz BAND SAWING MACHINE OPERATOR Work Phone: [facility] CenterLjasmwtojy65-44-3245zfyxomfqv, seasonal, injectableLisa Aichholz BAND SAWING MACHINE OPERATOR Work Phone: [facility] CenterQbzpvmeiel74-86-8018bvcwhnntk virus vaccine, unspecified formulationBessie Chava DO Work Phone: [facility] Payers DatePayer CategoryPayerPolicy [id number] Health InsuranceHEALTHSCOPE [id number] [id number] [id number] 2.0.1.353196.3.57[id number] 2..1.919403.3.57[id number] 2.0.1.773934.3.57[id number] 2.0.1.062334.3.57[id number] 2.0.1.518171.3.57[id number] 2.0.1.953902.3.57[id number] 2.840.1.281555.3.57[id number] 2.840.1.590692.3.579.2.035 [id number] 2..0.1.365163.3.57[id number] 2.16.840.1.154702.3.57[id number] 2..0.1.023727.3.57[id number] 2..0.1.250928.3.57[id number] 2.0.1.932159.3.57[id number] Social History DateTypeDetailFacilityTobacco smoking status NHISTobacco smoking consumption unknownNOAL HealthcareStart: 79-66-7324Fgf Assigned At BirthFemalThe [facility] HealthcareStart: 66-58-0451Vbillg identityIdentifies as female gender (finding) [facility] HealthcareStart: 01-20-2024 End: 74-40-1215Xuukon orientationNot on fileNOAL HealthcareStart: 09-16-2023 Tobacco smoking status NHISNever smoked tobaccoPR[facility] CHIL[facility]'S [facility] Work Phone: Start: 75-65-8127Rnijdeh use and exposureSmokeless tobacco non-userNOAL HealthcareStart: 01-20-2024 End: 29-12-8906Xxltvqfcz beverage intakeDeferNOMS HealthcareStart: 01-20-2024 End: 31-50-3690Ogmrydj of Social functionNOAL HealthcareStart: 59-13-7411Looomcq Commentcaffine: 1x weeklyNOAL Healthcare Functional Status TvwlNaqjtkxrdjSyndyxZiyphrve06-83-7858Cfyiuyv Health Questionnaire 2 item (PHQ- 2) [Reported][facility] Healthcare History of Present illness Narrative 11-27-2024 Note Date & SedmHhyrGnizexqh66-47-4851 History of Present illness Narrative* Jillian Tillman NP - 11/27/2024 4:50 PM EDTAssociated Problem(s): Weight gain, abnormal Check labs Consider adipex at fu appt 1600 calorie diet * Jillian Tillman NP - 11/27/2024 4:49 PM EDTAssociated Problem(s): Acanthosis nigricans Check insulin * Jillian Tillman NP - 11/27/2024 4:48 PM EDTAssociated Problem(s): Class 1 obesity due to excess calories without serious comorbidity in adult Discussed with patient their BMI (actual, verses recommended). We have also discussed lifestyle modifications: attempts to perform physical activity as chronic conditions allow, also to monitor dietary intake: increasing protein/fruits/veggies and lowering carb intake (unless contraindicated). Limit sodas, juices, and sugary drinks. Also discussed oral medications that can be utilized for weight loss, as well as surgical options for weight loss. * SUZY GALLO - 11/27/2024 3:40 PM EDT No record in our system that pt has seen anyone in our office * Jillian Tillman NP - 11/27/2024 3:40 PM EDT Images from the original note were not included. Janice Rodriguez is a 38 y.o. female presents with chief complaint of new patient HPI: Here to talk about weight gain: Over 40 pounds in last 6 months Used to work out 5-6 days week 2 hours each, at thanksgiving time stopped doing this Does not eat breakfast, they do eat at home and also eats out regularly as well No diff swallowing either SUBJECTIVE: MEDICATIONS: Current Outpatient Medications Medication Instructions Mirena (52 MG) 52 mg, As needed spironolactone (ALDACTONE) 100 mg, Oral, Daily, Take 1 tablet po daily tretinoin (Retin-A) 0.1 % cream Apply to face, once daily at evening/night time. Wash off in AM. supply ALLERGIES: No Known Allergies REVIEW OF SYMPTOMS: Review of Systems Constitutional: Positive for unexpected weight change. Negative for appetite change, chills and fever. HENT: Negative for congestion, ear pain and sore throat. Eyes: Negative for pain, discharge, redness and visual disturbance. Respiratory: Negative for cough, shortness of breath and wheezing. Cardiovascular: Negative for chest pain, palpitations and leg swelling. Gastrointestinal: Negative for abdominal pain, blood in stool, constipation, diarrhea, nausea and vomiting. Genitourinary: Negative for difficulty urinating, dysuria and frequency. Musculoskeletal: Negative for arthralgias, back pain, joint swelling and myalgias. Skin: Negative for rash and wound. Neurological: Negative for dizziness, tremors, seizures, syncope and headaches. Psychiatric/Behavioral: Negative for behavioral problems, self-injury and suicidal ideas. The patient is not nervous/anxious. Hematological: Does not bruise/bleed easily. Endocrine: Negative for polydipsia, polyphagia and polyuria. Allergic/Immunologic: Negative for environmental allergies and food allergies. PAST MEDICAL HISTORY Past Medical History: Diagnosis Date Acne IUD (intrauterine device) in place Past Surgical History: Procedure Laterality Date CERVICAL BIOPSY W/ LOOP ELECTRODE EXCISION CHOLECYSTECTOMY Right GALLBLADDER family history includes Asthma in her sister; Diabetes in her brother, father, and mother; Hypertension in her father; Hypotension in her mother; Lung cancer in her paternal grandmother. OBJECTIVE: Visit Vitals BP 118/82 (BP Location: Left arm, Patient Position: Sitting, BP Cuff Size: Large adult) Pulse 108 Temp 98.5 F (Temporal) Resp 18 Ht 5' 3 Wt 219 lb 9.6 oz SpO2 97% BMI 38.90 kg/m Smoking Status Never BSA 2.1 m Physical Exam Vitals and nursing note reviewed. Constitutional: General: She is not in acute distress. Appearance: Normal appearance. HENT: Head: Normocephalic and atraumatic. Right Ear: External ear normal. Left Ear: External ear normal. Nose: Nose normal. Mouth/Throat: Mouth: Mucous membranes are moist. Eyes: Extraocular Movements: Extraocular movements intact. Conjunctiva/sclera: Conjunctivae normal. Neck: Vascular: No carotid bruit. Cardiovascular: Rate and Rhythm: Normal rate and regular rhythm. Pulses: Normal pulses. Heart sounds: Normal heart sounds. No murmur heard. Pulmonary: Effort: Pulmonary effort is normal. Breath sounds: Normal breath sounds. No wheezing or rhonchi. Abdominal: General: Bowel sounds are normal. There is no distension. Palpations: Abdomen is soft. There is no mass. Tenderness: There is no abdominal tenderness. Musculoskeletal: General: Normal range of motion. Cervical back: Normal range of motion and neck supple. No tenderness. Right lower leg: No edema. Left lower leg: No edema. Lymphadenopathy: Cervical: No cervical adenopathy. Skin: General: Skin is warm and dry. Capillary Refill: Capillary refill takes 2 to 3 seconds. Findings: No rash. Comments: Acanthosis nigrans Neurological: General: No focal deficit present. Mental Status: She is alert and oriented to person, place, and time. Psychiatric: Mood and Affect: Mood normal. Behavior: Behavior normal. Thought Content: Thought content normal. Judgment: Judgment normal. ASSESSMENT AND PLAN: No follow-ups on file. Problem List Items Addressed This Visit Class 1 obesity due to excess calories without serious comorbidity in adult Discussed with patient their BMI (actual, verses recommended). We have also discussed lifestyle modifications: attempts to perform physical activity as chronic conditions allow, also to monitor dietary intake: increasing protein/fruits/veggies and lowering carb intake (unless contraindicated). Limit sodas, juices, and sugary drinks. Also discussed oral medications that can be utilized for weight loss, as well as surgical options for weight loss. Relevant Orders Hemoglobin A1c Insulin, random Wellness examination Check labs Restart exercise 2-3 times week Fu to review labs Relevant Orders CBC and differential Comprehensive metabolic panel Lipid panel TSH Urinalysis with reflex microscopic (clean catch) Acanthosis nigricans Check insulin Weight gain, abnormal - Primary Check labs Consider adipex at fu appt 1600 calorie diet * Jillian Tillman NP - 11/27/2024 7:26 AM EDTAssociated Problem(s): Wellness examination Check labs Restart exercise 2-3 times week Fu to review labs documented in this [facility] Instructions 11-27-2024 Note Date & KvlfYfrwVrlkqnrs63-96-5366 Instructions* Patient Instructions* Jillian Tillman NP - 11/27/2024 3:40 PM EDT Fasting labs: 8 hours Meds to check on with insurance for weight loss: Weekly medication: Wegovy (semaglutide), Terzepatide, Saxenda (every day 1600 calories daily, and also try twice a gym for only 60 minutes documented in this [facility] Clinical Note 06-15-2024 Note Date & PovdScnhGrfnhxyu24-15-0462 NotePatient Education Nutrition BMI for Adults Body mass [...] This can help you reach a healthy weight.BMI screening can be done again to see if these changes are working. How is BMI calculated? Your height and weight are measured. The BMI is found from those numbers. This can be done with U.S. or metric measurements. Note that charts and online BMI calculators are available to help you findyour BMI quickly and easily without doing these [...] measurement is 1.75 m x 1.75 m, whichequals 3.1 meters squared. 3. Divide the number of kilograms (your weight) by the meters squared number. In this example: 70 ?3.1 = 22.6. This is your BMI. What [...] for Disease Control and Prevention: cdc.gov ??? [place] Heart Association: heart.org ??? National Heart, Lung, and Blood Harvey: nhlbi.nih.gov This information is not intended to replace advice given to you by your health care provider. Make sure you discuss any questions you have with your health care provider. Document Revised: 01/07/2023 Document Reviewed: 12/31/2022 [employer] Patient Education ? 2023 [employer] History of Present illness Narrative 06-14-2024 Note Date & VzxaKnkaFqwaphou17-67-8776 History of Present illness Narrative* Elisha Atilio, CARA - 06/14/2024 3:00 PM EST Reason for Appointment: Patient ID: Janice Rodriguez is a 38 y.o. female who presents for Gynecologic Exam Patient presents today for Annual Exam. MEDICATIONS Current Outpatient Medications Medication Instructions benzoyl peroxide 5 % gel Apply to face once a day, in the morning mixed with clindamycin. 90 day supply clindamycin (Clindagel) 1 % gel Apply thin layer to face, once daily in the morning mixed with BPO.90 day supply Levonorgestrel (Mirena, 52 MG,) 20 MCG/DAY intrauterine device Mirena (52 MG) 52 mg, Intrauterine, As needed spironolactone (ALDACTONE) 100 mg, Oral, Daily, Take 1 tablet po daily tretinoin (Retin-A) 0.1 % cream Apply to face, once daily at evening/night time. Wash off in AM. supply ALLERGIES No Known Allergies PROBLEMS Active Ambulatory Problems Diagnosis Date Noted No Active Ambulatory Problems Resolved Ambulatory Problems Diagnosis Date Noted No Resolved Ambulatory Problems Past Medical History: Diagnosis Date Acne HISTORY PAST MEDICAL HISTORY SOCIAL HISTORY Past Medical History: Diagnosis Date Acne Social History Tobacco Use Smoking status: Never Smokeless tobacco: Never Vaping Use Vaping status: Never Used Substance Use Topics Alcohol use: Defer Drug use: Defer FAMILY HISTORY Family History Problem Relation Name Age of Onset Diabetes Mother Diabetes Father Diabetes Brother Cancer Paternal Grandmother SURGICAL HISTORY Past Surgical History: Procedure Laterality Date CERVICAL BIOPSY W/ LOOP ELECTRODE EXCISION GALLBLADDER REVIEW OF SYSTEMS Review of Systems: Review of Systems Constitutional: Negative. HENT: Negative. Eyes: Negative. Respiratory: Negative. Cardiovascular: Negative. Gastrointestinal: Negative. Genitourinary: Negative. Musculoskeletal: Negative. Skin: Negative. Neurological: Negative. All other systems reviewed and are negative. Hematological: Negative. Endocrine: Negative. Allergic/Immunologic: Negative. OBJECTIVE Objective: Physical Exam Constitutional: Appearance: Normal appearance. She is well-developed. Genitourinary: Vulva normal. Breasts: Breasts are soft. Right: Normal. Left: Normal. Cardiovascular: Rate and Rhythm: Normal rate and regular rhythm. Pulmonary: Effort: Pulmonary effort is normal. Breath sounds: Normal breath sounds. Abdominal: General: Bowel sounds are normal. There is no distension. Palpations: Abdomen is soft. Tenderness: There is no abdominal tenderness. There is no guarding or rebound. Musculoskeletal: General: No swelling. Normal range of motion. Right lower leg: No edema. Left lower leg: No edema. Neurological: Mental Status: She is alert and oriented to person, place, and time. Skin: General: Skin is warm and dry. Psychiatric: Mood and Affect: Mood normal. Behavior: Behavior normal. Vitals and nursing note reviewed. Exam conducted with a inspector precision present. Vitals: Estimated body mass index is 35.78 kg/m as calculated from the following: Height as of 24: 5' 3 . Weight as of this encounter: 202 lb. BP: 110/70 No LMP recorded. ASSESSMENT & PLAN ICD-10-CM 1. Well woman exam with routine gynecological exam Z01.419 Pap Smear HPV DNA probe, amplified Annual Exam: Patient presents today for an annual exam. Patient states she is doing well and has no complaints. Pap was obtained without difficulty. Orders Placed This Encounter Procedures HPV DNA probe, amplified Follow Up: Patient is to return in one year for annual unless needed otherwise. Documented by Elisha Trimble LPN on behalf of: Bessie Larsen DO documented in this [facility] History of Present illness Narrative 01-20-2024 Note Date & [id number] History of Present illness Narrative* Lara Valerio MD - 01/20/2024 3:40 PM EDT Images from the original note were not included. Follow up Diagnosis: Acne Location: Face Last visit: 11/16/2023 Symptoms: None. Denies dryness, breast tenderness, breakthrough bleeding, and dizziness Status:Much improved. Feels the increase of tretinoin was very beneficial. Happy with new treatmentplan Treatments tried and failed: Differin gel, Klaron lotion, and Tretinoin 0.025% cream Current treatment: Spironolactone 100 mg every day. Benzaclin gel every day in the morning (Clindamycin gel with Benzoyl peroxide gel)- started at last follow up. Tretinoin increased to 0.1% cream every day at bedtime at last follow up All pertinent medical history, medications, and allergies were reviewed. General Exam: alert , oriented to person, place, and time , normal affect, well appearing, unaccompanied A focused exam completed based on patient reported problems, see below: 1. Acne vulgaris Head - Anterior (Face) Much improved. Nearly clear. See photo Much improved. Patient very happy with treatment. Plan to continue spironolactone 100 mg every day,Benzaclin gel every day in the morning, and Tretinoin to 0.1% cream every day at bedtime. Patient denies current or plans to become , avoid on this medication and discontinue immediately if unplanned occurs. Plan to follow up in one year, unless flared or having side effects prior to. She voiced understanding. Refills sent to [facility] in [place] per patient request at this time. spironolactone (Aldactone) 100 MG tablet - Head - Anterior (Face) Take 1 tablet (100 mg) by mouth Daily Take 1 tablet po daily clindamycin (Clindagel) 1 % gel - Head - Anterior (Face) Apply thin layer to face, once daily in the morning mixed with BPO. 90 day supply benzoyl peroxide 5 % gel - Head - Anterior (Face) Apply to face once a day, in the morning mixed with clindamycin. 90 day supply tretinoin (Retin-A) 0.1 % cream - Head - Anterior (Face) Apply to face, once daily at evening/night time. Wash off in AM. 90 day supply Next Visit: 1 year, acne follow up [facility] of Present illness Narrative 06-08-2023 Note Date & [id number] History of Present illness Narrative* Elisha Trimble, TERMINAL GAUGER - 06/08/2023 3:00 PM EST Reason for Appointment: Patient ID: Janice Rodriguez is a 37 y.o. female who presents for [facility] Women Visit Patient presents today for Annual Exam appointment. Current Medications: has a current medication list which includes the following prescription(s): mirena (52 mg). Medical History: Active Ambulatory Problems Diagnosis Date Noted No Active Ambulatory Problems Resolved Ambulatory Problems Diagnosis Date Noted No Resolved Ambulatory Problems No Additional Past Medical History Family History Problem Relation Name Age of Onset Diabetes Mother Diabetes Father Diabetes Brother Cancer Paternal Grandmother Social History Tobacco Use Smoking status: Not on file Smokeless tobacco: Not on file Substance Use Topics Alcohol use: Not on file Drug use: Not on file Past Surgical History: Procedure Laterality Date CERVICAL BIOPSY W/ LOOP ELECTRODE EXCISION GALLBLADDER No Known Allergies Review of Systems: Review of Systems Constitutional: Negative. HENT: Negative. Eyes: Negative. Respiratory: Negative. Cardiovascular: Negative. Gastrointestinal: Negative. Genitourinary: Negative. Musculoskeletal: Negative. Skin: Negative. Neurological: Negative. All other systems reviewed and are negative. Hematological: Negative. Endocrine: Negative. Allergic/Immunologic: Negative. Objective Physical Exam Constitutional: Appearance: Normal appearance. She is well-developed. Genitourinary: Vulva normal. Breasts: Breasts are soft. Right: Normal. Left: Normal. Cardiovascular: Rate and Rhythm: Normal rate and regular rhythm. Pulmonary: Effort: Pulmonary effort is normal. Breath sounds: Normal breath sounds. Abdominal: General: Bowel sounds are normal. There is no distension. Palpations: Abdomen is soft. Tenderness: There is no abdominal tenderness. There is no guarding or rebound. Musculoskeletal: General: No swelling. Normal range of motion. Right lower leg: No edema. Left lower leg: No edema. Neurological: Mental Status: She is alert and oriented to person, place, and time. Skin: General: Skin is warm and dry. Psychiatric: Mood and Affect: Mood normal. Behavior: Behavior normal. Vitals and nursing note reviewed. Exam conducted with a inspector precision present. Vitals: Estimated body mass index is 31.32 kg/m as calculated from the following: Height as of this encounter: 5' 3 . Weight as of this encounter: 176 lb 12.8 oz. BP: 114/72 No LMP recorded. Assessment/Plan Encounter Diagnosis Name Primary? Well woman exam with routine gynecological exam Patient presents today for an annual exam. Patient states she is doing well and has no complaints. Pap was obtained without difficulty. Follow Up: Patient is to return in one year for annual unless needed otherwise. Documented by Elisha Trimble LPN on behalf of: Bessie Larsen DO documented in this encounterNOAL Healthcare Evaluation note Note Date & TypeNoteFacilityEvaluation note* Diagnosis Well woman exam with routine gynecological exam Routine gynecological examination documented in this encounter [facility] Evaluation note Note Date & TypeNoteFacilityEvaluation note* Diagnosis Acne vulgaris- Primary Other acne documented in this encounter [facility] Evaluation note Note Date & TypeNoteFacilityEvaluation note* Diagnosis Well woman exam with routine gynecological exam Routine gynecological examination documented in this encounter [facility] Evaluation note Note Date & TypeNoteFacilityEvaluation note* Diagnosis Weight gain, abnormal- Primary Class 1 obesity due to excess calories without serious comorbidity in adult, unspecified BMI Wellness examination Acanthosis nigricans Acquired acanthosis nigricans documented in this encounter [facility] Summary Purpose Family History No Family History Records FoundNo Family History Records FoundNo Family History Records FoundNo Family History Records Found Advance Directives No Advanced Directives Records FoundNo Advanced Directives Records FoundNo Advanced Directives Records FoundNo Advanced Directives Records Found Additional Source Comments INFORMATION SOURCE (unrecogn ized section and content) DATE CREATED AUTHOR 10/02/2021 [facility] DATE CREATED AUTHOR AUTHOR'S ORGANIZ ATION 11/20/2023 [facility] EPIC DATE CREATED AUTHOR AUTHOR'S ORGANIZ ATION 07/09/2024 [facility] DATE CREATED AUTHOR AUTHOR'S ORGANIZ ATION 11/28/2024 [facility] EPIC Reason for Visit (unrecogniz ed section and content) ReasonCommentsWell Women VisitReasonCommentsGynecologic ExamReasonCommentsnew patient Care Teams (unrecognized sec tion and content) Team MemberRelationshipSpecialtyStart DateEnd Date Shaikh Nelson MD [address] [place] [phone] PCP - [facility]06/08/23Team MemberRelationshipSpecialtyStart Date End Date Shaikh Nelson MD [facility]06/08/23Team MemberRelationshipSpecialtyStart Date End Date Esa Holland MD [address] [place] [phone] [facility]11/27/24 Jillian Tillman NP [address] [place] [address] Nurse [facility]11/27/24Team MemberRelationshipSpecialtyStart DateEnd Date Esa Holland MD [address] [place] [address] [facility]11/27/24 Jillian Tillman NP [address] [place] [address] Nurse [facility]11/27/24 FOR RECORDS PERTAINING TO PATIENTS WHO ARE OR HAVE BEEN ENROLLED IN A CHEMICAL DEPENDENCY/SUBSTANCEABUSE PROGRAM, SOME INFORMATION MAY BE OMITTED. This clinical summary was aggregated from multiple sources. Caution should be exercised in using it in the provision of clinical care. This summary normalizes information from multiple sources, and as a consequence, information in this document may materially change the coding, format and clinical context of patient data. In addition, data may be omitted in some cases. CLINICAL DECISIONS SHOULD BE BASED ON THE PRIMARY CLINICAL RECORDS. [facility]. provides no warranty or guarantee of the accuracy or completeness of information in this document.
--- OUTSIDE RECORDS SUMMARY | 2025-03-09 15:39 | XMS_ITS | Clinical Summary ---
Author Organization [facility] Address [facility] [id number] [address] [place] [address] Care Team Providers Care Fitness Plan Coordinator Name Role Phone Unavailable Primary Care Provider Unavailabl e Social History Tobacco UseTypesPacks/DayYears UsedDateSmoking Tobacco: Never AssessedChildcare AnswerDate ZpnsbvasAwthmarmiEpobqdc19/12/2019EmploymentAnswerDate Recorded AmeoetapdeSvzwjpt35/12/2019CommentsUnknownSex and Gender Information ValueDate RecordedSex Assigned at BirthNot on fileLegal LffBxdvqy95/06/2015 11:57 AM EDTGender IdentityNot on fileSexual OrientationNot on file Plan of Treatment Not on file Medical Devices Not on file
--- OUTSIDE RECORDS SUMMARY | 2025-03-09 15:39 | XMS_ITS | Clinical Summary ---
Author Organization [facility] Healthcare Address [address] [place] [address] Care Team Providers Care Brazing Machine Tender Name Role Phone Esa Holland MD Primary Care Provider [phone] Jillian Tillman ELECTRICAL APPRENTICE Unavailable [phone] Allergies No known active allergies Medications MedicationSigDispense QuantityRefillsLast FilledStart DateEnd DateStatus Levonorgestrel (Mirena, 52 MG,) 20 MCG/DAY intrauterine device 52 mg by Intrauterine route if needed (every 5 years)Active spironolactone (Aldactone) 100 MG tablet Indications:Acne vulgarisTake 1 tablet (100 mg) by mouth Daily Take 1 tablet po daily 90 tablet 4Active tretinoin (Retin-A) 0.1 % cream Indications:Acne vulgarisApply to face, once daily at evening/night time. Wash off in AM. 90 day supply 135 g ctive Active Problems ProblemNoted DateDiagnosed DateClass 1 obesity due to excess calories without serious comorbidity in adult11/27/2024 Assessment & Plan (11/27/2024 4:48 PM EDT): [...] as surgical options for weight loss. Wellness ptzswgviqrj73/28/2025 Assessment & Plan (11/27/2024 4:49 PM EDT): Check labs Restart exercise 2-3 times week Fu to review labs Acanthosis /28/2025 Assessment & Plan (11/27/2024 4:49 PM EDT): Check insulin Weight gain, /28/2025 Assessment & Plan (11/27/2024 4:50 PM EDT): Check labs Consider adipex at fu appt 1600 calorie diet Immunizations ImmunizationAdministration DatesNext DueInfluenza, seasonal, injectable 04/23/2006Tdap106/03/2010 Family History Medical HistoryRelationNameCommentsDiabetesBrotherDiabetesFatherHypertension FatherDiabetesMotherHypotensionMotherLung cancerPaternal GrandmotherAsthmaSister RelationNameStatusCommentsBrotherFatherMotherPaternal GrandmotherSister Social History Tobacco UseTypesPacks/DayYears UsedDateSmoking Tobacco: NeverSmokeless Tobacco: Never Tobacco Cessation:Counseling Given: Not Answered Alcohol UseStandard Drinks/WeekCommentsDefer0 (1 standard drink = 0.6 oz pure alcohol)caffine: 1x weeklyPHQ-2AnswerDate RecordedPatient Health Questionnaire-2 Dyduq972CommentsUnknownSex and Gender InformationValueDate RecordedSex Assigned at OlkifWmtutk58/21/2024 12:20 PM EDTLegal SexFemale 07/15/2022 8:08 PM EDTGender RcwdgmqvNzvykv58/21/2024 12:20 PM EDTSexual OrientationNot on file Last Filed Vital Signs Vital SignReadingTime TakenCommentsBlood Jzqnaylh438/8211/27/2024 3:45 PM EDT Rzzni64604/28/2025 3:45 PM FZBWicqqsowbvc90.9 ??C (98.5 ??F)11/27/2024 3:45 PM EDTRespiratory Uudv888911/27/2024 3:45 PM EDTOxygen Yonywaceph99%11/27/2024 3:45 PM EDTInhaled Oxygen Concentration--Ocsaev81.6 kg (219 lb 9.6 oz)11/27/2024 3:45 PM CWLBlsrdc948 cm (5' 3 )11/27/2024 3:45 PM EDTBody Mass Index38.9011/27/2024 3:45 PM EDT Plan of Treatment DateTypeDepartmentCare Team (Latest Contact Info)Bbiqvcqiyvn62/25/2026 4:00 PM ESTOffice Visit [facility] [address] [place] [phone] uLca Larsen, [address] [place], [place] [id number] Health MaintenanceDue DateLast DoneCommentsCOVID-19 Vaccine ( season) 5005/21/2021, 08/22/2020, 08/01/2020Influenza Vaccine (#1)2025 04/23/2006Cervical Cancer Uznwkdjzq37/12/2030HPV/Yuojop8606/14/2029Pap Smear , 4Pneumococcal Vaccine: Pediatrics (0 to 5 Years) and At-Risk Patients (6 to 64 Years)Aged OutNo longer eligible based on patient's age to complete this topic Procedures Procedure NamePriorityDate/TimeAssociated DiagnosisCommentsPAP SMEARRoutine 06/14/2024 12:00 AM ESTfrom Last 3 Months or Most Recently Relevant to Health Maintenance Results * Pap Smear (06/14/2024 12:00 AM EST)Specimen (Source)Anatomical Location / LateralityCollection Method / VolumeCollection TimeReceived TimeSwabCervical swab / Unknown Narrative Authorizing ProviderResult TypeResult StatusCorey Chava DOLAB CYTOLOGY ORDERABLESFinal ResultPerforming OrganizationAddressCity/State/ZIP CodePhone Number EXTERNAL LAB from Last 3 Months or Most Recently Relevant to Health Maintenance Insurance Care Teams Team MemberRelationshipSpecialtyStart DateEnd Esa Holland MD PCP - GeneralFamily Medicine11/27/24 Jillian Tillman NP Nurse PractitionerFamily Medicine11/27/24
[2025-03-09 15:55] LABS: Hematocrit 40.1 % (36.0-48.0); Hemoglobin 13.0 g/dL (12.0-16.0); Immature Granulocytes Abs Auto 0.03 10^3/uL (0.00-0.03); Immature Granulocytes Pct Auto 0.2 % (0.0-0.5); Lymphocytes Absolute Auto 2.8 10^3/uL (1.2-3.8); Mean Corpuscular HGB Conc 32.4 g/dL (29.9-35.2); Mean Corpuscular Hemoglobin 27.6 pg (26.7-34.0); Mean Corpuscular Volume 85.1 fL (81.0-99.0); Platelet Count 322 10^3/uL (150-450); Red Blood Count 4.71 10^6/uL (4.20-5.40); White Blood Count 12.5 10^3/uL (4.0-11.0)
[2025-03-09 16:36] LABS: Thyroid Stimulating Hormone 4.864 uIU/mL (0.358-3.740)
[2025-03-09 16:58] LABS: Alanine Aminotransferase 30 U/L (14-59); Albumin Globulin Ratio 0.9; Albumin Level 3.6 g/dL (3.4-5.0); Alkaline Phosphatase 110 U/L (46-116); Aspartate Amino Transferase 20 U/L (15-37); Globulin 4.1 g/dL; Total Protein 7.7 g/dL (6.4-8.2)
== END 2025-03-09 15:36 | disposition home or self-care (01) ==
LOC: LAB 15:36
PROVIDERS: PCP Nurse Practitioner; Visit Provider Nurse Practitioner
DX: R79.89 Other specified abnormal findings of blood chemistry (principal); R77.9 Abnormality of plasma protein, unspecified; D72.829 Elevated white blood cell count, unspecified
CPT/HCPCS: 36415; 80076; 84439; 84443; 85025